=== PATIENT | female | born 1950 | race Caucasian/White ===

== ENCOUNTER 2016-07-30 05:04 | Day surgery (SDC) | payer OTHER, BC ==
[2016-07-28 14:26] VITALS: BMI 24.7
--- NOTE | 2016-07-30 09:23 | HP ---
[facility] - Chief Complaint Chief Complaint: right tibia painful hardware - Past Medical History Allergies/Adverse Reactions: Allergies Allergy/AdvReac Type Severity Reaction Status Date / Time No Known Drug Allergies Allergy Verified 07/30/16 09:03 acetaminophen [From Tylenol] AdvReac CAN'T TAKE Verified 07/30/16 09:03 DUE TO LEUKEMIA MEDICATIONS - Current Medications Current Medications: Home Medications Medication Instructions Recorded Clonazepam [Klonopin] 1 mg PO DAILY 07/28/16 Ibuprofen [Motrin -] 600 mg PO QID PRN 07/28/16 Imatinib Mesylate [Gleevec] 400 mg PO DAILY 07/28/16 Oxycodone HCl [Roxicodone] 5 mg PO Q6H #30 tablet MDD 4 07/30/16 Satellite Physical Exam - Physical Examination Vital Signs: Vital Signs Period Temp Pulse Resp BP Sys/Figueroa Pulse Ox Last 24 Hr 97.7 F 74 20 137/76 100 General Appearance: Well Nourished, Well Developed, Alert & Oriented x3 ENT: Clear Lung: Normal air movement Heart: Regular rate & rhythm Extremities: Other (right LE- + ttp, nvi) Neurological: Intact, Alert, Oriented Satellite Impression/Plan - Impression/Plan Impression: right tibia painful hardware Operative Procedure: right tibia removal of hardware Date to be Performed: 07/30/16
[2016-07-30] MEDS ORDERED: PROPOFOL 20 ML ONE (09:30)
[2016-07-30] MEDS ORDERED: ceFAZolin SODIUM 1 GM VIAL IVPB ONE (09:35)
[2016-07-30] MEDS ORDERED: oxyCODONE HCL 5 MG TABLET PO PRN (10:16)
[2016-07-30] MEDS ORDERED: ONDANSETRON 4 MG/2 ML VIAL IVPUSH PRN (10:16)
[2016-07-30] MEDS ORDERED: LACTATED RINGERS SOLUTION 1,000 ML IV SCH (10:30)
[2016-07-30 11:45] VITALS: TEMP 97.5
[2016-07-30] MEDS ORDERED: oxyCODONE HCL 5 MG TABLET ONE (11:49)
[2016-07-30 13:52] VITALS: BP 141/83; PULSE 81
--- NOTE | 2016-07-30 14:43 | EKG ---
Test Reason : Blood Pressure : / mmHG Vent. Rate : 070 BPM Atrial Rate : 070 BPM P-R Int : 148 ms QRS Dur : 096 ms QT Int : 378 ms P-R-T Axes : 075 059 047 degrees QTc Int : 408 ms NORMAL SINUS RHYTHM NORMAL ECG NO PREVIOUS ECGS AVAILABLE Confirmed by JUANA CHRISTIANSEN, FLAKO ([id number]) on 07/30/2016 2:43:08 PM Referred By: RAE NOBLE Confirmed By:FLAKO ARIAS MD
--- NOTE | 2016-08-06 11:18 | PATH ---
Surgical Pathology Report Patient Name: ABRAM SMITH Med. Rec. #: [id number] /Age/Gender: 1950 (Age: 65) / F Account: [id number] Location: [facility] SURGICAL Taken: 07/30/2016 Received: 07/30/2016 Reported: 07/31/2016 Physicians: Fredi Abreu M.D. Specimen(s) Received HARDWARE RIGHT TIBIAL/FISTULA Clinical History Status post right tibia/fibula fracture Final Diagnosis HARDWARE FROM RIGHT TIBIA/FIBULA, REMOVAL: ORTHOPEDIC HARDWARE (GROSS EXAM). Electronically Signed Daren Anton M.D. Gross Description Received fresh, labeled "hardware from right tibia/fibula" are 3 cramer metallic screws ranging from 2.4-4.0 cm in length. No soft tissue is present. No sections are submitted, gross only. DL/07/30/2016 saudi/07/30/2016
== END 2016-07-30 13:56 | disposition home or self-care (01) ==
LOC: JASU-SURG 05:04
PROVIDERS: ATTEND Orthopaedic Surgery
PROC: 0YP90YZ Removal of Other Device from Right Lower Extremity, Open Approach (ICD-10-PCS; principal; 2016-07-30 09:30)
DX: T84.84XA Pain due to internal orthopedic prosthetic devices, implants and grafts, initial encounter (principal); Y79.8 Miscellaneous orthopedic devices associated with adverse incidents, not elsewhere classified; Y92.9 Unspecified place or not applicable
CPT/HCPCS: 76000-TC; 88300-TC; 93005; 93010; 94760; 97116-GP